=== PATIENT | male | born 1980 | race Caucasian/White ===

== ENCOUNTER 2018-02-21 13:54 | Emergency (ER) | payer BC, OTHER, SELFPAY ==
[~2018-02-21] VITALS: Ht 177.8 cm; Wt 75.0 kg
[2018-02-21 14:09] VITALS: BP 130/97
== END 2018-02-21 14:54 | disposition home or self-care (01) ==
LOC: ED 14:48
DX: K08.89 Other specified disorders of teeth and supporting structures (principal)
CPT/HCPCS: 99283